=== PATIENT | male | born 1995 | race Caucasian/White ===

== ENCOUNTER 2017-06-04 10:26 | Emergency (ER) | payer OTHER ==
[~2017-06-04] VITALS: Ht 185.4 cm; Wt 72.7 kg
[2017-06-04 10:27] VITALS: BP 127/69
[2017-06-04] MEDS ORDERED: METH4TAB28 PO (10:36)
[2017-06-04] MEDS ORDERED: CETI10TA PO (10:36)
[2017-06-04] MEDS ORDERED: HYDR-3363 PO (10:36)
[2017-06-04] MEDS ORDERED: BENA25CA4 PO (10:37)
[2017-06-04] MEDS ORDERED: dexameTHASONE 20 MG/5 ML VIAL (J1100) IM ONE (11:00)
== END 2017-06-04 11:32 | disposition home or self-care (01) ==
LOC: M ED 10:26
DX: R21 Rash and other nonspecific skin eruption (principal); T78.40XA Allergy, unspecified, initial encounter; F17.210 Nicotine dependence, cigarettes, uncomplicated
CPT/HCPCS: 96372; 99282; J1100

== ENCOUNTER 2017-06-06 07:38 | Emergency (ER) | payer OTHER ==
[~2017-06-06] VITALS: Ht 180.3 cm; Wt 75.0 kg
[~2017-06-06 07:38] MED LIST: BENA25CA4 PO; CETI10TA PO; HYDR-3363 PO; METH4TAB28 PO
[2017-06-06 07:52] VITALS: BP 132/57
[2017-06-06] MEDS ORDERED: predniSONE 20 MG TAB PO ONE (08:30)
[2017-06-06] MEDS ORDERED: HYDROCORTISONE 1% CREAM 30 GM TOP ONE (08:30)
[2017-06-06] MEDS ORDERED: PRED20TA PO (08:30)
== END 2017-06-06 08:46 | disposition home or self-care (01) ==
LOC: M ED 07:38
DX: L50.9 Urticaria, unspecified (principal); T78.40XA Allergy, unspecified, initial encounter; Z79.899 Other long term (current) drug therapy

== ENCOUNTER 2017-08-08 17:28 | Emergency (ER) | payer OTHER ==
[~2017-08-08] VITALS: Ht 180.3 cm; Wt 72.7 kg
[~2017-08-08 17:28] MED LIST changes: +PRED20TA PO
[2017-08-08] MEDS ORDERED: PERCOCET 5MG/325MG TAB PO ONE (18:00)
[2017-08-08] MEDS ORDERED: ceFAZolin 1GM INJ (J0690) IM ONE (18:15)
[2017-08-08] MEDS ORDERED: KEFL500C17 PO (18:23)
[2017-08-08] MEDS ORDERED: PERC5TAB12 PO (18:23)
[2017-08-08 18:29] VITALS: BP 138/67
--- NOTE | 2017-08-08 18:29 | REP ---
Clinical: Trauma. Technique: AP and lateral views of the left hand. Findings: No acute fracture or dislocation is appreciated. Osseous structures and joint spaces are intact and normal. No subcutaneous emphysema or radiodense foreign body. Impression: No acute fracture or dislocation. Signed by Mike Song MD 08/08/2017 06:20 P
== END 2017-08-08 18:44 | disposition home or self-care (01) ==
LOC: M ED 17:28
DX: S62.301A Unspecified fracture of second metacarpal bone, left hand, initial encounter for closed fracture (principal); S61.301A Unspecified open wound of left index finger with damage to nail, initial encounter; S61.102A Unspecified open wound of left thumb with damage to nail, initial encounter; W23.0XXA Caught, crushed, jammed, or pinched between moving objects, initial encounter; Y92.018 Other place in single-family (private) house as the place of occurrence of the external cause; Y93.89 Activity, other specified; Y99.8 Other external cause status; F17.210 Nicotine dependence, cigarettes, uncomplicated
CPT/HCPCS: 73120; 96372; 99284; J0690

== ENCOUNTER 2019-10-10 17:41 | Emergency (ER) | payer OTHER ==
[~2019-10-10] VITALS: Ht 180.3 cm; Wt 71.8 kg
[~2019-10-10 17:41] MED LIST changes: +KEFL500C17 PO; -METH4TAB28 PO; +METH4TAB8 PO; +PERC5TAB12 PO
[2019-10-10] MEDS ORDERED: SUMAtriptan SUCCINATE 6 MG/0.5 ML VIAL SC ONE (19:00)
[2019-10-10] MEDS ORDERED: METOCLOPRAMIDE INJ 10MG/2ML VIAL (J2765) IV ONE (19:00)
[2019-10-10 19:20] LABS: BASO % 0.4 % (0.0-1.0); EOS % 0.5 % (0.0-3.0); HEMATOCRIT 43.5 % (42.0-52.0); HEMOGLOBIN 14.8 g/dl (13.5-17.5); LYMPH # 2.4 10^3/uL (1.5-5.0); LYMPH % 28.9 % (24.0-44.0); MEAN CORPUSCULAR HEMOGLOBIN 30.7 pg (27.0-33.0); MEAN CORPUSCULAR VOLUME 90.2 fl (80.0-96.0); MONO # 0.6 10^3/uL (0.0-0.8); MONO % 6.7 % (0.0-5.0); NEUTROPHILS # 5.4 10^3/uL (1.5-8.5); NEUTROPHILS % 63.3 % (36.0-66.0); PLATELET COUNT, AUTOMATED 189 10^3/uL (150-450); RED BLOOD COUNT 4.82 10^6/uL (4.30-6.10); WHITE BLOOD COUNT 8.5 10^3/uL (4.0-10.0)
[2019-10-10 19:37] LABS: ERYTHROCYTE SEDIMENTATION RATE 1 mm/hr (0-15)
--- NOTE | 2019-10-10 19:55 | REPVR ---
PROCEDURE INFORMATION: Exam: CT Head Without Contrast Exam date and time: 10/10/2019 6:57 PM Age: 24 years old Clinical indication: Speech disturbance; Additional info: Speech problems, numbness hands TECHNIQUE: Imaging protocol: Computed tomography of the head without contrast. Radiation optimization: All CT scans at this facility use at least one of these dose optimization techniques: automated exposure control; mA and/or kV adjustment per patient size (includes targeted exams where dose is matched to clinical indication); or iterative reconstruction. COMPARISON: No relevant prior studies available. FINDINGS: Brain: No acute infarction. No hemorrhage. Unremarkable white matter. No mass effect. Ventricles: Normal. No ventriculomegaly. Bones/joints: Unremarkable. No acute fracture. Sinuses: Visualized sinuses are unremarkable. No fluid levels. Mastoid air cells: Visualized mastoid air cells are well aerated. Soft tissues: Unremarkable. IMPRESSION: No acute intracranial abnormality. Electronically signed by: Tess Snow On 10/10/2019 19:55:24 PM
[2019-10-10 20:49] VITALS: BP 113/55
== END 2019-10-10 20:54 | disposition home or self-care (01) ==
LOC: M ED 17:41
DX: G43.119 Migraine with aura, intractable, without status migrainosus (principal)
CPT/HCPCS: 70450; 80047; 85025; 85652; 86140; 96374; 99284; J2765

== ENCOUNTER → 2021-03-22 | Outpatient (CLI) | payer OTHER ==
[~2021-03-22] MED LIST changes: +ISOVUE-300 61% 50ML VIAL As Ordered ONE; +LIDOCAINE 1% MDV 20ML VIAL As Ordered ONE; +TRIAMCINOLONE ACETONIDE SUSP 40 MG/ML VIAL (J3301) As Ordered ONE
--- NOTE | 2021-03-22 17:16 | REP ---
INDICATION: LIGAMENT SPRAIN OF RT HIP. COMPARISON: None. TECHNIQUE: The procedure was performed under the direct supervision of Dr. Hitchcock. The benefits and risks including but not limited to pain infection and bleeding and anaphylaxis were explained to the patient and informed consent was obtained. The right femoral neck was localized using fluoroscopic guidance. The skin was prepped and draped in a sterile fashion. 1% lidocaine was used as a local anesthetic. Using fluoroscopic guidance, and last image hold technology, a 22-gauge spinal needle was inserted and advanced to the femoral neck. 0.5 ml of Isovue-300 was injected to verify placement. Ten ml of a solution containing 9 ml of 1% Xylocaine and 1 mL of Kenalog 40 mg was injected. The needle was then removed. The patient tolerated the procedure well and there were no immediate complications. Less than 6 seconds of fluoro time was utilized for this procedure. FINDINGS: None IMPRESSION: Fluoro guidance for right hip injection. <Electronically signed by Sergo Mccall > 03/22/21 1652 <Electronically signed by Elieser Hitchcock > 03/22/21 [id number]
== END ==
LOC: M RADPRO 09:28
PROVIDERS: ATTEND Physician Assistant Surgical
DX: S73.12 Ischiocapsular (ligament) sprain of hip (principal); Y99.8 Other external cause status
CPT/HCPCS: 20610; 77002; J3301; Q9967

== ENCOUNTER 2021-07-31 12:03 | Emergency (ER) | payer OTHER ==
[~2021-07-31] VITALS: Ht 180.3 cm; Wt 79.0 kg
[~2021-07-31 12:03] MED LIST changes: -ISOVUE-300 61% 50ML VIAL As Ordered ONE; -LIDOCAINE 1% MDV 20ML VIAL As Ordered ONE; -TRIAMCINOLONE ACETONIDE SUSP 40 MG/ML VIAL (J3301) As Ordered ONE
--- OUTSIDE RECORDS SUMMARY | 2021-07-31 12:25 | CCD | Continuity of Care Document ---
Author Author David Ruiz M.D. Organization Unknown Address [address] [place] [address] Phone [phone] Care Team Providers Care Commercial Lines Account Manager Name Role Phone Referral, Self AUTM Unavailable Unknown AUTM Unavailable Problems Description No Information Available Social History Type Date Description Comments Sex Unknown Tobacco Use Start: Unknown Never Used Smokeless Tobacco ETOH Use Occasionally consumes alcohol Tobacco Use Start: Unknown End: Unknown Patient is a former smoker Smoking Status Reviewed: 05/07/21 Patient is a former smoker Exercise Type/Frequency Exercises regularly Regu lar endurance, cardio, strength, and weight training Allergies, Adverse Reactions, Alerts Description No Information Available Medications Description No Information Available Immunizations Description No Information Available Vital Signs Date Vital Result Comment 05/07/2021 11:23am Height 71 inches 5'11" Weight 175.00 lb BMI (Body Mass Index) 24.4 kg/m2 Heart Rate 61 /min Body Temperature 97.2 F Pain Level 7 rt hip O2 % BldC Oximetry 98 % Results Description No Information Available Procedures Description No Information Available Medical Devices Description No Information Available Encounters Description No Information Available Assessments Description No Information Available Plan of Treatment No Information Available Functional Status Description No Information Available Mental Status Description No Information Available Referrals Description No Information Available
--- OUTSIDE RECORDS SUMMARY | 2021-07-31 12:25 | CCD | Summary of Care ---
Author Author [facility] Organization [facility] Address Unknown Phone Unavailable Care Team Providers Care Tree Driller Name Role Phone Pcp, No PCP Unavailable Reason for Referral * Diagnostic Radiology (Routine) Referred By Contact Referred To Contact Status Reason Specialty Diagnoses / Procedures Yordan Fuentes MD [address] [facility] [address] [place] [id number] Email: [email or web address] Open Radiology Diagnoses Soft tissue mass P rocedures MR Extremity Lower Joint with and without Contrast Right Joint, Hip Electronically signed by Yordan Fuentes MD at Reason for Visit * Reason Comments New Patient Right hip mass * Office Visit (Routine) Referred By Contact Referred To Contact Status Reason Specialty Diagnoses / Procedures [facility] - REFERRAL [id number] [place] [address] Yordan Funetes MD [address] [place] [address] [place] [id number] Email: [email or web address] Open Orthopedic Diagnoses Surgery F2F, R hip painpt to bring MRI/films on disc, records scanned, ins, referred by [facility],, records scanned, call given to orthoconnect to complete prereg P rocedures NEW PATIENT 06/02/21-06/02/22 RT HIP Encounter Details Care Team Description Date Type Department Yordan Fuentes MD [address] [facility] [address] [place] [address] Soft tissue mass (Primary Dx) 06/21/2021 Office Visit [facility] [address] [phone] Allergies No Known Active Allergiesdocumented as of this encounter (statuses as of 06/21/2021) Medications No known medicationsdocumented as of this encounter (statuses as of 06/21/2021) Active Problems No known active problemsdocumented as of this encounter (statuses as of 06/21/2021) Immunizations Name Administration Dates Next Due documented as of this encounter Social History Date Tobacco Use Types Packs/Day Years Used Never Smoker Smokeless Tobacco: Never Used Comments Alcohol Use Standard Drinks/Week Not Currently 0 (1 standard drink = 0.6 o z pure alcohol) Sex Assigned at Date Recorded Not on file Date Recorded COVID-19 Exposure Response 06/21/2021 8:13 AM EDT In the last month, have you been in contact with No / Unsure someone who was confirmed or suspected to have Coronavirus / COVID-19? documented as of this encounter Last Filed Vital Signs Reading Time Taken Comments Vital Sign - - Blood Pressure - - Pulse - - Temperature - - Respiratory Rate - - Oxygen Saturation - - Inhaled Oxygen Concentration 77.1 kg (170 lb) 06/21/2021 8:40 AM EDT Weight 180.3 cm (5' 11") 06/21/2021 8:40 AM EDT Height 23.71 06/21/2021 8:40 AM EDT Body Mass Index documented in this encounter Patient Instructions * Patient Instructions* Sofya Guadarrama LPN - 06/21/2021 8:15 AM EDT The patient is instructed to call the office with any question/concerns or if sy mptoms worsen. documented in this encounter Progress Notes * Khoa Law MD - 06/21/2021 8:15 AM EDT Images from the original note were not included. ADDENDUM: Patient also seen by resident physician and examined under my supervis ion. Cornell portions of the history and examination were repeated by me, and the e ntire resident note was reviewed. Modifications to that evaluation are detailed here. Changes to the note are made within the substance of the original reside nt note. NEW PATIENT, INITIAL ENCOUNTER, SOFT TISSUE MASS Episode of Care: Initial Symptoms: Chronic Anatomical Site: Hip Laterality: Right Injury Cause and Place of Occurrence: N/A Fracture Healing Status: N/A CC: Soft-tissue mass HPI: David is a 26 y.o. year/old White or male with a 5 year history of right hip pain. Recent MRI on 01/11/2021 showed a cystic lesion adjacent to the iliopsoas. There have been no constitutional symptoms. 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 History of prior known soft-tissue masses/cancer was absent. Work-up thus far has consisted of x-rays and MRI of the involved site. Aspiration has not been done. Biopsy has not been done. Staging work-up thus far has consisted of no other studies. PMHx: Reviewed on current visit information sheet. History reviewed. No pertinent past medical history. History reviewed. No pertinent surgical history. No current outpatient medications on file. No Known Allergies PSoHx: Social History Tobacco Use Smoking status: Never Smoker Smokeless tobacco: Never Used Substance Use Topics Alcohol use: Not Currently Drug use: Not Currently FHx: Cancer-related family history is not on file. Family History Problem Relation Age of Onset Heart disease Paternal Grandfather ROS: Comprehensive review of systems completed by patient and reviewed by me. P ertinent positive findings included in the HPI. Otherwise negative. PHYSICAL EXAM: Healthy-appearing, well-developed, well-nourished, alert and orie nted x 3. Mood showing no evidence of agitation, anxiety, or depression. HEENT: Normocephalic and atraumatic to inspection and palpation. Sclerae anicter ic. Extraocular muscles intact. No conjunctivitis. Pupils equal, round, and reac tive to light and accommodation. Oropharynx clear with no lesions. Mucous membra igor pink and moist. Hearing within normal limits. Intact to finger rub. NECK: No palpable thyromegaly, adenopathy, or masses. HEART: Regular rate and rhythm without murmurs. LUNGS: Clear to auscultation. No rales, rhonchi, or wheezes. Respiratory effort normal. ABDOMEN: No hepatosplenomegaly or soft tissue masses. Soft and nontender . LYMPH: No cervical, epitrochlear, axillary, inguinal, or popliteal adenopathy. SKIN: No rashes or jaundice to inspection. No nodules to palpation. PERIPHERAL VASCULAR EXAM: No cyanosis, clubbing, or edema in the distal extremit ies. Pulses are palpable distally. NEURO: Neurovascular status distally on the involved side shows intact foot dors iflexion/plantarflexion/EHL, normal light touch sensation in the deep and superf icial peroneal nerve distribution as well as the medial and lateral plantar nerv e distributions; foot is well perfused. Symmetric with contralateral. MUSCULOSKELETAL: Bilateral hip exam shows no tenderness over the greater trochan ter. He has ain with FADIR and abduction. Stinchfield does not produce any groin pain on either side. There is a non-tender palpable mass in the right groin. Overlying skin is without acute related abnormalities. RADIOLOGY: All imaging studies were reviewed with the patient/family members. Th ere is a lobulated soft tissue mass in the anterior groin that is hypointense to muscle on T1 and hyperintense on T2. XR 01/06/21 report: MRI 02/09/2021 Report: ASSESSMENT: 1. Soft-tissue mass right hip. DDx: Synovial cyst, other benign synovial process , much less likely synovial sarcoma 2. Bilateral hip pain, right worse than left. This may be related to femoral a cetabular impingement as he does have a cam lesion. However, he only obtained m inimal relief with an hip injection. PLAN: PROBABLE SYNOVIAL CYST- Options of observation vs office or image-guided needle aspiration to confirm the diagnosis vs excision of the lesion were discussed wit h the patient. Risks and chances of recurrence and/or spontaneous resoloution w ith each were also reviewed. The patient understands that there is no guarantee of success even with open operative excision. The patient opts for MRI with and without Azeem. FU to review results. CC: No Pcp Encounter Diagnosis Name Primary? Soft tissue mass Yes Orders Placed This Encounter MR Extremity Lower Joint with and without Contrast Right Joint, Hip Summary of the information reviewed: 1. History, 2. Physical exam, 3. X-rays,M RI 4. Prior notes documented in this encounter Plan of Treatment Order Schedule Name Type Priority Associated Diag noses Expected: 06/21/2021, Expires: 2 MR Extremity Lower Joint Imaging Routine Soft tissue mass with and without Contrast Right Joint, Hip Health Maintenance Due Date Last Done Comments MMR Vaccines (1 of 1 - 1997 Standard series) Varicella Vaccines (1 of 1997 2 - 2-dose childhood series) DTaP,Tdap,and Td Vaccines 2003 (1 - Tdap) COVID-19 Vaccine (1) 2008 02/16/2021 HIV Screening 2009 Influenza Vaccine 06/25/2021 Pneumococcal Vaccine: 65+ 2061 Years (1 of 1 - PPSV23) HIB Vaccines Aged Out No longer eligible based on patient's age to complete this topic Hepatitis A Vaccines Aged Out No longer eligibl e based on patient's age to complete this topic Hepatitis B Vaccines Aged Out No longer eligibl e based on patient's age to complete this topic IPV Vaccines Aged Out No longer eligible based on patient's age to complete this topic Pneumococcal Vaccine: Aged Out No longer eligib le based on patient's age to Pediatrics (0 to 5 Years) complete this topic and At-Risk Patients (6 to 64 Years) documented as of this encounter Results Not on filedocumented in this encounter Visit Diagnoses Diagnosis Soft tissue mass - Primary Disorders of soft tissue, unspecified documented in this encounter
--- OUTSIDE RECORDS SUMMARY | 2021-07-31 12:25 | CCD | Continuity of Care Document ---
Author Author David Ruiz M.D. Organization Unknown Address [address] [place] [address] Phone [phone] Care Team Providers Care Millwright Instructor Name Role Phone Referral, Self AUTM Unavailable [...]
--- OUTSIDE RECORDS SUMMARY | 2021-07-31 12:25 | CCD | Continuity of Care Document ---
Author Author David Ruiz M.D. Organization Unknown Address [address] [place] [address] Phone [phone] Care Team Providers Care Racing Secretary Name Role Phone Referral, Self AUTM Unavailable Unknown AUTM Unavailable [facility] AUTM [phone] Problems Active Problems Provider Date Synovial cyst of hip Geovanny Ruiz M.D. Onset: 2020 Sprain of hip Geovanny Ruiz M.D. 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 Onset: 05/07/2021 Social History Type Date Description Comments Sex Unknown Tobacco Use Start: Unknown Never Used Smokeless Tobacco ETOH Use Occasionally consumes alcohol Tobacco Use Start: Unknown End: Unknown Patient is a former smoker Recreational Drug Use Denies Drug Use Smoking Status Reviewed: 07/23/21 Patient is a former smoker Exercise Type/Frequency Exercises regularly Regu lar endurance, cardio, strength, and weight training Allergies and adverse reactions Description No Known Drug Allergies Medications Description No Active Medications Immunizations Description No Information Available Vital Signs Date Vital Result Comment 07/23/2021 10:11am Height 71 inches 5'11" Weight 175.00 lb BMI (Body Mass Index) 24.4 kg/m2 Heart Rate 66 /min Body Temperature 98.0 F Pain Level 3 O2 % BldC Oximetry 94 % 05/07/2021 11:23am Height 71 inches 5'11" Weight 175.00 lb BMI (Body Mass Index) 24.4 kg/m2 Heart Rate 61 /min Body Temperature 97.2 F Pain Level 7 rt hip O2 % BldC Oximetry 98 % Results Description No Information Available Procedures Date Code Description Status 05/07/2021 [address] Office/Outpatient [facility] 30 -44 Minutes Completed Medical Devices Description No Information Available Encounters Type Date Location Provider Dx Diagnosis Office Visit 05/07/2021 10:50a [place] [facility] Geovanny Ruiz M.D. M24.151 Other articular cartilage disorders, rig ht hip S73.191A Other sprain of right hip, i nitial encounter M71.351 Other bursal cyst, right hip Assessments Date Code Description Provider 05/07/2021 M24.151 Other articular cartilage disord ers, right hip Mari Najera PA-C 05/07/2021 M24.151 Other articular cartilage disord ers, right hip Geovanny Ruiz M.D. 05/07/2021 S73.191A Other sprain of right hip, initi al encounter Mari Najera PA-C 05/07/2021 S73.191A Other sprain of right hip, initi al encounter Geovanny Ruiz M.D. 05/07/2021 M71.351 Other bursal cyst, right hip Milind Najera PA-C 05/07/2021 M71.351 Other bursal cyst, right hip Hernesto Ruiz M.D. Plan of Treatment Future Appointment(s):* 08/03/2021 11:00 am - Geovanny Ruiz M.D. at [facility] Functional Status Description No Information Available Mental Status Description No Information Available Referrals Refer to Reason for Referral Status Appt Date Yordan Fuentes 05/13/21 FAXED ALL REF INFO Closed [address] [place] [address] [phone]
--- OUTSIDE RECORDS SUMMARY | 2021-07-31 12:25 | CCD | Continuity of Care Document ---
Author Author David Ruiz M.D. Organization Unknown Address [address] [place] [address] Phone [phone] Care Team Providers Care Facility Maintenance Manager Name Role Phone Referral, Self AUTM Unavailable Unknown AUTM Unavailable [facility] AUTM [phone] Problems Active Problems Provider Date Synovial cyst [...] Available Procedures Date Code Description Status 05/07/2021 [address] Office[facility]patient [facility] 30 -44 Minutes Completed Medical Devices Description No Information Available Encounters Type Date Location Provider Dx Diagnosis Office Visit 05/07/2021 10:50a [place] [facility] Geovanny Ruiz M.D. M24.151 Other articular [...] 11:00 am - Geovanny Ru[facility] M.D. at [facility] Functional Status Description No Information Available Mental Status Description No Information Available Referrals Refer to Reason for Referral Status Appt Date Yordan Fuentes 05/13/21 FAXED ALL REF INFO Closed [address] [place] [address] [phone]
--- OUTSIDE RECORDS SUMMARY | 2021-07-31 12:26 | CCD ---
Author Author [facility] Organization [facility] Address Unknown Phone Unavailable Care Team Providers Care Aircraft Ordnance Technician Name Role Phone Herman Ruiz MD Unavailable Unavailable Herman Ruiz MD Unavailable Unavailable Herman Ruiz MD Unavailable Unavailable JosephHerman MD Unavailable Unavailable JosephHerman MD Unavailable Unavailable JosephHerman MD Unavailable Unavailable JosephHerman MD Unavailable Unavailable JosephHerman MD Unavailable Unavailable JosephHerman MD Unavailable Unavailable JosephHerman MD Unavailable Unavailable JosephHerman MD Unavailable Unavailable JosephHerman MD Unavailable Unavailable JosephHerman MD Unavailable Unavailable JosephHerman MD Unavailable Unavailable JosephHerman MD Unavailable Unavailable JosephHerman douglas MD Unavailable Unavailable JosephHerman douglas MD Unavailable Unavailable JosephHerman douglas MD Unavailable Unavailable JosephHerman douglas MD Unavailable Unavailable JosephHerman MD Unavailable Unavailable Herman Ruiz MD Unavailable Unavailable JosephHerman douglas MD Unavailable Unavailable Herman Ruiz MD Unavailable Unavailable Herman Ruiz MD Unavailable Unavailable Herman Ruiz MD Unavailable Unavailable Herman Ruiz MD Unavailable Unavailable JosephHerman douglas MD Unavailable Unavailable JosephHerman MD Unavailable Unavailable JosephHerman douglas MD Unavailable Unavailable Herman Ruiz MD Unavailable Unavailable Herman Ruiz MD Unavailable Unavailable Herman Ruiz MD Unavailable Unavailable Herman Ruiz MD Unavailable Unavailable Herman Ruiz MD Unavailable Unavailable JosephHerman douglas MD Unavailable Unavailable Herman Ruiz MD Unavailable Unavailable Joseph, Herman Small MD Unavailable Unavailable Joseph, Herman Small MD Unavailable Unavailable Joseph, Herman Small MD Unavailable Unavailable Joseph, Herman Small MD Unavailable Unavailable Joseph, Herman Small MD Unavailable Unavailable Joseph, Herman Small MD Unavailable Unavailable Joseph, Herman Small MD Unavailable Unavailable Joseph, Herman Small MD Unavailable Unavailable Joseph, Herman Small MD Unavailable Unavailable Joseph, Herman Small MD Unavailable Unavailable Joseph, Herman Small MD Unavailable Unavailable Joseph, Herman Small MD Unavailable Unavailable Joseph, Herman Small MD Unavailable Unavailable Joseph, Herman Small MD Unavailable Unavailable Joseph, Herman Small MD Unavailable Unavailable Joseph, Herman Small MD Unavailable Unavailable Joseph, Herman Small MD Unavailable Unavailable Joseph, Herman Small MD Unavailable Unavailable Joseph, Herman Small MD Unavailable Unavailable Joseph, Herman Small MD Unavailable Unavailable Joseph, Herman Small MD Unavailable Unavailable Joseph, Herman Small MD Unavailable Unavailable Joseph, Herman Small MD Unavailable Unavailable Joseph, Herman Small MD Unavailable Unavailable Joseph, Herman Small MD Unavailable Unavailable Joseph, Herman Small MD Unavailable Unavailable Joseph, Herman Small MD Unavailable Unavailable Joseph, Herman Small MD Unavailable Unavailable Joseph, Herman Small MD Unavailable Unavailable Joseph, Herman Small MD Unavailable Unavailable Joseph, Herman Small MD Unavailable Unavailable Gina, Sonal Farr MD Unavailable Unavailable Gina, Sonal Farr MD Unavailable Unavailable Gina, Sonal Farr MD Unavailable Unavailable Gina, Sonal Farr MD Unavailable Unavailable Gina, Sonal Farr MD Unavailable Unavailable Gina, Sonal Farr MD Unavailable Unavailable Gina, Sonal Farr MD Unavailable Unavailable Gina, Sonal Farr MD Unavailable Unavailable Gina, Sonal Yordan MD Unavailable Unavailable Gina, Sonal Yordan MD Unavailable Unavailable Gina, Sonal Yordan MD Unavailable Unavailable Gina, Sonal Yordan MD Unavailable Unavailable Gina, Sonal Yordan MD Unavailable Unavailable Gina, Sonal Yordan MD Unavailable Unavailable Gina, Sonal Yordan MD Unavailable Unavailable Gina, Sonal Yordan MD Unavailable Unavailable Gina, Sonal Yordan MD Unavailable Unavailable Gina, Sonal Yordan MD Unavailable Unavailable Gina, Sonal Yordan MD Unavailable Unavailable Gina, Sonal Yordan MD Unavailable Unavailable Gina, Sonal Yordan MD Unavailable Unavailable Gina, Sonal Yordan MD Unavailable Unavailable Gina, Sonal Yordan MD Unavailable Unavailable Gina, Sonal Yordan Unavailable Unavailable Gina, A Yordan MD Unavailable Unavailable Gina, A Yordan MD Unavailable Unavailable Gina, A Yordan MD Unavailable Unavailable Gina, A Yordan MD Unavailable Unavailable Gina, A Yordan MD Unavailable Unavailable Gina, A Yordan MD Unavailable Unavailable Gina, A Yordan MD Unavailable Unavailable Gina, A Yordan MD Unavailable Unavailable Gina, A Yordan MD Unavailable Unavailable Gina, A Yordan MD Unavailable Unavailable Gina, A Yordan MD Unavailable Unavailable Gina, A Yordan MD Unavailable Unavailable Gina, A Yordan MD Unavailable Unavailable Gina, A Yordan MD Unavailable Unavailable Gina, A Yordan MD Unavailable Unavailable Gina, A Yordan MD Unavailable Unavailable Gina, A Yordan MD Unavailable Unavailable Gina, A Yordan MD Unavailable Unavailable Gina, A Yordan MD Unavailable Unavailable Gina, A Yordan MD Unavailable Unavailable Gina, A Yordan MD Unavailable Unavailable Gina, A Yordan MD Unavailable Unavailable Gina, A Yordan MD Unavailable Unavailable Gina, A Oyrdan MD Unavailable Unavailable Gina, A Yordan MD Unavailable Unavailable Gina, A Yordan MD Unavailable Unavailable Gina, A Yordan MD Unavailable Unavailable Gina, A Yordan MD Unavailable Unavailable Gina, A Yordan MD Unavailable Unavailable Gina, A Yordan MD Unavailable Unavailable Gina, A Yordan MD Unavailable Unavailable Gina, A Yordan MD Unavailable Unavailable Gina, A Yordan MD Unavailable Unavailable Gina, A Yordan MD Unavailable Unavailable Gina, A Yordan MD Unavailable Unavailable Gina, A Yordan MD Unavailable Unavailable Gina, A Yordan MD Unavailable Unavailable Gina, A Yordan MD Unavailable Unavailable Gina, A Yordan MD Unavailable Unavailable Gina, A Yordan MD Unavailable Unavailable Gina, A Yordan MD Unavailable Unavailable Gina, A Yordan MD Unavailable Unavailable Gina, A Yordan MD Unavailable Unavailable Gina, A Yordan MD Unavailable Unavailable Gina, A Yordan MD Unavailable Unavailable Gina, A Yordan MD Unavailable Unavailable Gina, A Yordan MD Unavailable Unavailable Gina, A Yordan MD Unavailable Unavailable Gina, A Yordan MD Unavailable Unavailable Gina, A Yordan MD Unavailable Unavailable Gina, A Yordan MD Unavailable Unavailable Gina, A Yordan MD Unavailable Unavailable Gina, A Yordan MD Unavailable Unavailable Gina, A Yordan MD Unavailable Unavailable Gina, A Yordan MD Unavailable Unavailable Gina, A Yordan MD Unavailable Unavailable Gina, A Yordan MD Unavailable Unavailable Gina, A Yordan MD Unavailable Unavailable Gina, A Yordan MD Unavailable Unavailable Gina, A Yordan MD Unavailable Unavailable Gina, A Yordan MD Unavailable Unavailable Gina, A Yordan MD Unavailable Unavailable Gina, A Yordan MD Unavailable Unavailable Gina, A Yordan MD Unavailable Unavailable Gina, A Yordan MD Unavailable Unavailable Gina, A Yordan MD Unavailable Unavailable Gina, A Yordan MD Unavailable Unavailable Gina, A Yordan MD Unavailable Unavailable Gina, A Yordan MD Unavailable Unavailable Gina, A Yordan MD Unavailable Unavailable Gina, A Yordan MD Unavailable Unavailable Gina, A Yordan MD Unavailable Unavailable Gina, A Yordan MD Unavailable Unavailable Gina, A Yordan MD Unavailable Unavailable Gina, A Yordan MD Unavailable Unavailable Gina, A Yordan MD Unavailable Unavailable Gina, A Yordan MD Unavailable Unavailable Gina, A Yordan MD Unavailable Unavailable Gina, A Yordan MD Unavailable Unavailable Gina, A Yordan MD Unavailable Unavailable Gina, A Yordan MD Unavailable Unavailable Gina, A Yordan MD Unavailable Unavailable Gina, A Yordan MD Unavailable Unavailable Gina, A Yordan MD Unavailable Unavailable Gina, A Yordan MD Unavailable Unavailable Gina, A Yordan MD Unavailable Unavailable Gina, A Yordan MD Unavailable Unavailable Gina, A Yordan MD Unavailable Unavailable Gina, A Yordan MD Unavailable Unavailable Gina, A Yordan MD Unavailable Unavailable Gina, A Yordan MD Unavailable Unavailable Gina, A Yordan MD Unavailable Unavailable Gina, A Yordan MD Unavailable Unavailable Re-disclosure Warning The records that you are about to access may contain information from federally-assisted alcohol or drug abuse programs. If such information is present, then the following federally mandated warning applies: This information has been disclosed to you from records protected by federal confidentiality rules (42 CFR part 2). The federal rules prohibit you from making any further disclosure of this information unless further disclosure is expressly permitted by the written consent of the person to whom it pertains or as otherwise permitted by 42 CFR part 2. A general authorization for the release of medical or other information is NOT sufficient for this purpose. The Federal rules restrict any use of the information to criminally investigate or prosecute any alcohol or drug abuse patient.The records that you are about to access may contain highly sensitive health information, the redisclosure of which is protected by Article 27-F of the [facility] Public Health law. If you continue you may have access to information: Regarding HIV / AIDS; Provided by facilities licensed or operated by the [facility] Office of Mental Health; or Provided by the [facility] Office for People With Developmental Disabilities. If such information is present, then the following [facility] mandated warning applies: This information has been disclosed to you from confidential records which are protected by state law. State law prohibits you from making any further disclosure of this information without the specific written consent of the person to whom it pertains, or as otherwise permitted by law. Any unauthorized further disclosure in violation of state law may result in a fine or detention sentence or both. A general authorization for the release of medical or other information is NOT sufficient authorization for further disc losure. Allergies and Adverse Reactions Type Description Substance Reaction Status Data Source(s ) Propensity to adverse reactions NO KNOWN ALLERGIES NO KNOWN ALLERGIES [facility] Encounters Encounter Providers Location Date Indications Data Source(s ) Outpatient Attender: Yordan Fuentes MD [id number] 07/16/2021 12:00:0 0 AM EDT [facility] Outpatient Referrer: Yordan Fuentes MD 07/16/2021 12 :00:00 AM EDT Other specified soft tissue disorders [facility] Other specified soft tissue disorders Outpatient Attender: Yordan Fuentes MDReferrer: Geovanny douglas MD [id number] 06/21/2021 12:00:00 AM T [facility] Outpatient Attender: Geovanny Ruiz MD [facility] 10:50:00 AM EDT [facility] ([facility] ) Immunizations Vaccine Date Status Description Data Source(s) COVID-19 VACCINE Janet 02/16/2021 12:00:00 AM EDT completed [facility] Vaccine Series Complete: YESThis Data wa s Submitted to [facility] Via Electronic Payment and Services (EPS)[employer]. Medications No Information Insurance Providers Payer name Policy type / Coverage type Policy ID Covered alliance party ID Covered alliance party's relationship to mckeon Policy Mckeon Plan Information U [id number] Self [id number] [employer] [id number] SP [id number] [employer] [id number] SP [id number] [employer] O [id number] S [id number] ACTIVE DUTY [id number] SP [id number] Problems, Conditions, and Diagnoses Code Display Name Description Problem Type Effective Dates Data Source(s) M79.89 Other specified soft tissue disorders Ot her specified soft tissue disorders Diagnosis 07/16/2021 10:42:55 AM EDT [facility] 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 Problem 04/25 12:00:00 AM EDT [facility] ([facility]) S73.191A Sprain of hip Sprain of hip Problem 05/07/2021 12:00:00 AM EDT [facility] 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 Problem 05/07/2021 12:00:00 AM EDT [facility] ([facility]) Surgeries/Procedures Procedure Description Date Indications Data Source(s) OFFICE OUTPATIENT NEW 30 MINUTES 05/07/2021 12:00:00 A M EDT [facility] ([facility]) Results ID Date Data Source [id number] 07/16/2021 03:49:48 PM EDT [facility] Name Value Range Interpretation Code Description Data Gracy rce(s) Supporting Document(s) Progress Note [facility] [id number] lbm [file] [id number] ID Date Data Source [id number] 07/16/2021 02:30:02 PM EDT [facility] MR EXTREMITY LOWER JOINT WITH AND WITHOU T CONTRAST [id number] RESULTInterpreted by:Aneudy Mcarthur MDEXAM: MRI Pelvis without and with ContrastHISTORY: Soft tissue massCOMPARISON: Outside MRI right hip 02/09/2021TECHNIQUE: Multisequence multiplanar MR imaging of the pelvis and hips was performed performed prior to and following intravenous administration of gadolinium contrast. Exam was performed on a 3.0 Grace GE MRI unit.CONTRAST: 16 cc MultiHance intravenous FINDINGS: No significant marrow signal abnormality, fracture or pelvic stress fracture. No aggressive marrow lesion or aggressive marrow enhancement.Osseous convexities are seen at the anterior femoral head-neck junctions bilaterally, which may place patient at risk for CAM type femoral acetabular impingement. Nondisplaced right anterior-superior acetabular labral tear is better visualized on the previous exam, with tiny adjacent hyperintense T2 signal subcortical cyst and mild underlying subchondral marrow edema within the anterior-superior right acetabular rim. No articular cartilage defect. No right hip joint effusion.No significant left hip arthropathy or left hip joint effusion.Visualized tendon origins and insertions are intact. No tendon tear. There is a hypointense T1 and hyperintense T2 signal multiseptated tubular cystic lesion which extends from the anterior superior right acetabulum proximally along the medial surface of the right iliopsoas muscle body into the pelvis, extending 6.4 cm craniocaudally and a 2.1 cm AP and 0.6 cm transversely. This lesion demonstrates thin peripheral enhancement on postgadolinium series and is most compatible with a multiseptated anterior-superior right hip para labral cyst extending centrally. No solid or nodular mass enhancement and no aggressive MRI features.No muscle signal and muscle atrophy.IMPRESSION: 1. Peripherally enhancing 6.4 x 0.6 x 2.1 cm multiseptated para labral cyst extending from the anterior superior right acetabulum proximally along the medial surface of the right iliopsoas muscle body into the pelvis. No solid or nodular enhancement.2. 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, and may place patient at risk for CAM femoral acetabular impingement.This document has been electronically signed by Aneudy Mcarthur MD on 07/16/2021 2:27 PM Name Value Range Interpretation Code Description Data Gracy rce(s) Supporting Document(s) ID Date Data Source [id number] 06/21/2021 09:16:01 AM [facility] Name Value Range Interpretation Code Description Data [facility](s) Supporting Document(s) Progress Note [facility] [id number]/NNTwjSSNlb6IsEDulGIo3SBpdLZQmF8JdAMT7iJ8eFWF0LZoFCgDiDoTuQWR6 [facility] [file] pAOhd+Mary Carmen/c7wOOCKC+UVV5U/6E/37z+3EurtQUe3/j/YsWgj6aL/7+[id number]/bzo [file] ICAgICAgICAgICAgICAgICAgICAgICAgICAgICAgIC AgICAgICAgICAgICAgICAgICAgICAgICAgICANCiAgICAgICAgICAgICAgICAgICAgICAgICAgICAgIC AgICAgICAgICAgICAgICAgICAgICAgICAgICAgICAgICAgICAgICAgICAgICAgICAgICAgICAgICAgIC AgICAgICAgICANCiAgICAgICAgICAgICAgICAgICAg ICAgICAgICAgICAgICAgICAgICAgICAgICAgICAgICAgICAgICAgICAgICAgICAgICAgICAgICAgICAg ICAgICAgICAgICAgICAgICAgICANCiAgICAgICAgICAgICAgICAgICAgICAgICAgICAgICAgICAgICAg ICAgICAgICAgICAgICAgICAgICAgICAgICAgICAgIC AgICAgICAgICAgICAgICAgICAgICAgICAgICAgICANCiAgICAgICAgICAgICAgICAgICAgICAgICAgIC AgICAgICAgICAgICAgICAgICAgICAgICAgICAgICAgICAgICAgICAgICAgICAgICAgICAgICAgICAgIC AgICAgICAgICAgICANCiAgICAgICAgICAgICAgICAg ICAgICAgICAgICAgICAgICAgICAgICAgICAgICAgICAgICAgICAgICAgICAgICAgICAgICAgICAgICAg ICAgICAgICAgICAgICAgICAgICAgICANCiAgICAgICAgICAgICAgICAgICAgICAgICAgICAgICAgICAg ICAgICAgICAgICAgICAgICAgICAgICAgICAgICAgIC AgICAgICAgICAgICAgICAgICAgICAgICAgICAgICAgICANCiAgICAgICAgICAgICAgICAgICAgICAgIC AgICAgICAgICAgICAgICAgICAgICAgICAgICAgICAgICAgICAgICAgICAgICAgICAgICAgICAgICAgIC AgICAgICAgICAgICAgICANCiAgICAgICAgICAgICAg ICAgICAgICAgICAgICAgICAgICAgICAgICAgICAgICAgICAgICAgICAgICAgICAgICAgICAgICAgICAg ICAgICAgICAgICAgICAgICAgICAgICAgICANCiAgICAgICAgICAgICAgICAgICAgICAgICAgICAgICAg ICAgICAgICAgICAgICAgICAgICAgICAgICAgICAgIC AgICAgICAgICAgICAgICAgICAgICAgICAgICAgICAgICAgICANCjw/qTUbY0bveZDrliR2Z0baLe6LZb 6HBA7sf2YcDUJyNZveaaRmYjsYGlOuRZDhQpzRPit3UMcjVD0ShHGpH9RhK2RkYAodTZ6XEDZgWBTwqJ BhRWWeMFToQpM6POPbNTdgZT3YyZWfPGxtYJRuKTIu KwYpRLDcCYNkLCYlRW6EMQQkS247prJdAk7CJp4DItAuBQ9mik0WQzDvPTMeSfsUUdz9JDgeDO8QdCHr kRVeAGEcWBQZAaNpO5xtf0BgOjFvUMBLTUhtMU6Dw4BqnXFpMVx+Cb0MBT2kd5AsEMkyJRQoIR4gvx1M VPxAWzMoO3TbiOtvGNGab2szWGUbDW1grNWnVJA4RZ YbkjtmyA4cvMDyVTgvJq8hlmQuvldrPIWwYIPwIR6cUq2oNKUkEQZ5TnY7IDAZDX5ETLRfDNRhcNUeDZ NaDEOUZX3ZJSrmHRV8RIMzpaLijJQxRLubIG0SJSEixlPkZvXqBUVCXVv+Me6JII5sk8ZqZVdkOUTpAG 7jhj1LGPePAgSrQ6Q2tCHzF5P1RNeaTc3KKACeTFTo TqMjIHRVFLypYZ4QZS0kbdX9KL3DaMRsRDYfTDRufZUlRXt0E23pqSZaSEgzTQ1FJZX+Eduardo+Mf7KCYYu XGTnKDQiZuGzXSKJYaLvR1MqF1AXp8RtB8MyDO02vKsxqnDvJWyzML9QZW2rGOUzHIZZKR6ErBGqiF2b xgYbElXfDAZTKsTmJ16yjYZfSOZaNJReXBJlPa6WVQ BeM9NvgbChoBnlxhQnZTYdRVNGET2NPBthbeHynNWwwBxhXZ87gXtiWL0UUg4UOnBmSQ5ive4OoNBtZr 8UCSWtYd4IGOMvMSYqVOHqCQY1EWWzPdRfSVqoKOXzZEXqDVH8BAOvFMHiKF7WXfVgTODlKkV1HeJjIX UjGOPtrc8MNLEbOAGmNxW4WVAkNTSsRJZgIAebAKJz JOPyWKK2PCHyNZFiFA8XTmEfMQBmHUX6ISPjMOKqYPHgeh2GYFDzQJAxOvSoSiJdYZRpPRTlFZjvMNUj ZAB4RTO3AILlNPJiDZ4VZgSaIQYrCRm0ViFhQLKdRCCamn3QRHRqPQNpZTM2MjOaCKOcBJYwBNqrVHXd QIF7TSMrNQXfDCHhGP2JKaWhEIFzQHK1CaXoDIEcSJ Memz8WGGTaXWIxINK9RqPnKXXdHXSqRVwiBVVfSUVsIAXvJOWwGPGhRE8TIoHeVHKkQWK3BMafRMLaPT Rkzu1AXSCjDFWkWnMdASGmMGKnDVJjELtfSXVtLAAdXCu6RWXmGOUnAK7MLhPlXESbJrO0KBvhJUVxAP Zava0EUSHsMCGyYeg9SHEyHEUrXPZeJYyrIVYpAUR7 EKHeDFIkARWnBD5ZFwOvTCMvSzR4SJCwRSBaQYDscf5DGTQiRGOdJBJ7YTDvJVUtYAGrTYolVOPoNUN9 DBWhRLHeEKPfRA6EWuEvNYHyYbW6RSYwYUUpMFTowu3MSPGzOEEqLfD0RIFxVCBoGKGeDNndOKFdWTR9 NeB2MFYhIKCeXS3PXuMgBZfqAGOGJjk3FBzxB8l6GG JqKl2EQ1Czb5SeBdMjLCSQQFlnHM9exsMwTYRnKa3GT7zIEcozIWB0ZGKgFMKoN7HyJHAaRvR6JDCjEd NbUtc0RZL7FR2jATVdXMqwCyXcMKN1G5NqHdIkGDR8LvIsLnMaHRZ7ItQ4WrBdUO9SXw1GCmF7EKW2cJ TkXg6LNcN3ShVGIpIpNU9EKFk= ID Date Data Source [id number] 12/19/2020 10:00:00 AM EDT [facility] Name Value Range Interpretation Code Description Data Gracy rce(s) Supporting Document(s) SARS-CoV-2 POSITIVE [facility] This lab was ordered by [facility] and reported by [email or web address]. ID Date Data Source [id number] 12/19/2020 12:00:00 AM EDT [facility] Name Value Range Interpretation Code Description Data Rgacy rce(s) Supporting Document(s) SARS-CoV-2 RT-PCR positive [facility] This lab was ordered by [facility] and re ported by [facility] ID Date Data Source [id number] 12/14/2020 09:06:00 AM EDT [facility] Name Value Range Interpretation Code Description Data Gracy rce(s) Supporting Document(s) SARS coronavirus 2 RNA Not Detected [facility] This lab was ordered by [facility] [employer] [facility] and reported by [facility]. ID Date Data Source [id number] 10/15/2020 09:17:00 AM EST [facility] Name Value Range Interpretation Code Description Data Gracy rce(s) Supporting Document(s) SARS coronavirus 2 RNA Not Detected [facility] This lab was ordered by [facility] [employer] [facility] and reported by [facility]. Procedure Social History Code Duration Value Status Description Data Source(s ) Smoking 07/23/2021 12:00:00 AM EDT Patient is a former smoker completed Patient is a former smoker [facility] ([facility]) Alcohol intake 06/21/2021 12:00:00 AM EDT Ex-drinker (finding) comp leted Ex- drinker (finding) [facility] Tobacco use and exposure 06/21/2021 12:00:00 AM EDT Never used co mpleted Never used [facility] Smoking 06/21/2021 12:00:00 AM EDT Never smoker completed Never s [facility] Vital Signs ID Date Data Source UNK Name Value Range Interpretation Code Description Data Source(s) Body height 71 [in_i] 71 [in_i] [facility] ([facility]) 5'11" Body weight 175.00 [lb_av] 175.00 [lb_av] [facility] T ([facility]) Body mass index (BMI) [Ratio] 24.4 kg/m2 24.4 k g/m2 [facility] ([facility]) Heart rate 66 /min 66 /min [facility] ([facility]) Body temperature 98.0 [degF] 98.0 [degF] [facility] ([facility]) Oxygen saturation in Arterial blood by Pulse oximetry 94 % 94 % [facility] ([facility]) Body height 71 [in_i] 71 [in_i] [facility] ([facility]) 5'11" Body weight 175.00 [lb_av] 175.00 [lb_av] MED T ([facility]) Body mass index (BMI) [Ratio] 24.4 kg/m2 24.4 k g/m2 [facility] ([facility]) Heart rate 61 /min 61 /min [facility] ([facility]) Body temperature 97.2 [degF] 97.2 [degF] [facility] ([facility]) Oxygen saturation in Arterial blood by Pulse oximetry 98 % 98 % [facility] ([facility])
--- OUTSIDE RECORDS SUMMARY | 2021-07-31 13:32 | CCD ---
Author Author [facility] Organization [facility] Address Unknown Phone Unavailable Care Team Providers Care Treasurer Name Role Phone Herman Ruiz MD Unavailable [...] Unavailable Unavailable JosephHerman douglas MD Unavailable Unavailable Joseph, Herman Small MD [...] Unavailable Joseph, Herman Small MD Unavailable Unavailable Jsoeph, Herman Small MD Unavailable Unavailable Joseph, Herman [...] Unavailable Gina, Sonal Yordan MD Unavailable Unavailable Igna, Sonal Yordan MD Unavailable Unavailable Gina, Sonal Yordan MD Unavailable Unavailable Gina, Sonal Farr MD Unavailable Unavailable Gina, Sonal Yordan MD Unavailable Unavailable Gina, A Yodran MD Unavailable Unavailable Gina, A Yordan MD [...] A Yordan MD Unavailable Unavailable Gina, A Yoradn MD Unavailable Unavailable Gina, A Yordan MD [...] Unavailable Gina, A Yordan MD Unavailable Unavailable Gian, A Yordan MD Unavailable Unavailable Gina, A [...] Unavailable Gina, A Yordan MD Unavailable Unavailable Gnia, A Yordan MD Unavailable Unavailable Gina, A Yordan MD Unavailable Unavailable Gina, A Yordan MD Unavailable Unavailable Joseph, Herman Small MD [...] Herman Small MD Unavailable Unavailable Joseph, Herman Samll MD Unavailable Unavailable Joseph, Herman Small MD Unavailable Unavailable Joseph, Herman Small MD Unavailable Unavailable Joseph, Herman Small MD Unavailable Unavailable Joseph, Herman Small MD Unavailable Unavailable Joseph, Herman Small MD Unavailable Unavailable Joseph, Herman Small MD Unavailable Unavailable Joseph, Herman Small MD Unavailable Unavailable Joseph, Herman mSall MD Unavailable Unavailable Joseph, Herman Small MD [...] Unavailable Joseph, Herman Small MD Unavailable Unavailable Re-disclosure Warning The records [...] is protected by Article 27-F of the [facility] Public Health law. If you continue you may have access to information: Regarding HIV / AIDS; Provided by facilities licensed or operated by the [facility] Office of Mental Health; or Provided by the [facility] Office for People With Developmental Disabilities. If such information is present, then the following [facility] mandated warning applies: This information has [...] law may result in a fine or long-term sentence or both. A general authorization for the release of medical or other information is NOT sufficient authorization for further disc losure. Allergies and Adverse Reactions Type Description Substance Reaction Status Data Source(s ) Propensity to adverse reactions NO KNOWN ALLERGIES NO KNOWN ALLERGIES [facility] Encounters Encounter Providers Location Date Indications Data Source(s ) Outpatient Attender: Yordan Fuentes MD [id number] 07/16/2021 12:00:0 0 AM EDT [facility] Outpatient Referrer: Yordan Fuentes MD 07/16/2021 12 :00:00 AM EDT Other specified soft tissue disorders [facility] Other specified soft tissue disorders Outpatient Attender: Yordan Fuentes MDReferrer: Geovanny douglas MD [id number] 06/21/2021 12:00:00 AM EDT [facility] Outpatient Attender: Geovanny Ruiz MD [place] [facility] 10:50:00 AM EDT [facility] ([facility] ) Immunizations Vaccine Date Status Description Data Source(s) COVID-19 VACCINE Janet 02/16/2021 12:00:00 AM EDT completed [facility] Vaccine Series Complete: YESThis Data wa s Submitted to [facility] [employer]. Medications No Information Insurance Providers Payer name Policy type / Coverage type Policy ID Covered republican ID Covered republican's relationship to mckeon Policy Mc[employer] Plan Information U [id number] Self [id number] [employer]Y [id number] SP [id number] [employer] [id number] SP [id number] [employer] O [id number] S [id number] ACTIVE DUTY [id number] SP [id number] Problems, Conditions, and Diagnoses Code Display Name Description Problem Type Effective Dates Data Source(s) M79.89 Other specified soft tissue disorders Ot her specified soft tissue disorders Diagnosis 07/16/2021 10:42:[address] 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 Name Value Range Interpretation Code Description Data Gracy rce(s) Supporting Document(s) Progress Note [facility] YHABOc7yAnAHOaTd33/SSWezGSImj0JyVQbmFAr0VLboPLJrT8XzIAW2rN5zXKJ4GBaSJgReQePiKXXu lbm [file] YdR3LDg4POkzMSHOYq0O ID Date Data Source [id number] 07/16/2021 02:30:[address] [facility] MR EXTREMITY LOWER JOINT WITH AND WITHOU T CONTRAST [id number] RESULTInterpreted by:XI DominguezAM: MRI Pelvis without and with ContrastHISTORY: Soft [...] rce(s) Supporting Document(s) ID Date Data Source [id number] 06/21/2021 09:16:[address] [facility] Name Value Range Interpretation Code Description Data Gracy rce(s) Supporting Document(s) Progress Note [facility] OFJTGi3jVmPFPcHf99/YTWqgKRGgm5QkQKptJGh6FCitNXGcL7KlCJM4jA3yVHZ2KEwGUzLaYkEdWCE6 lbm [file] pAOhd+Mary Carmen/o9eBCDIR+UVV5U/6E/37z+7TsqhWHx4/j/LzSro5sR/7+KIyotQathkE042669pQsf/bzo [file] ICAgICAgICAgICAgICAgICAgICAgICAgICAgICAgIC AgICAgICAgICAgICAgICAgICAgICAgICAgICANCiAgICAgICAgICAgICAgICAgICAgICAgICAgICAgIC AgICAgICAgICAgICAgICAgICAgICAgICAgICAgICAgICAgICAgICAgICAgICAgICAgICAgICAgICAgIC AgICAgICAgICANCiAgICAgICAgICAgICAgICAgICAg ICAgICAgICAgICAgICAgICAgICAgICAgICAgICAgICAgICAgICAgICAgICAgICAgICAgICAgICAgICAg ICAgICAgICAgICAgICAgICAgICANCiAgICAgICAgICAgICAgICAgICAgICAgICAgICAgICAgICAgICAg ICAgICAgICAgICAgICAgICAgICAgICAgICAgICAgIC AgICAgICAgICAgICAgICAgICAgICAgICAgICAgICANCiAgICAgICAgICAgICAgICAgICAgICAgICAgIC AgICAgICAgICAgICAgICAgICAgICAgICAgICAgICAgICAgICAgICAgICAgICAgICAgICAgICAgICAgIC AgICAgICAgICAgICANCiAgICAgICAgICAgICAgICAg ICAgICAgICAgICAgICAgICAgICAgICAgICAgICAgICAgICAgICAgICAgICAgICAgICAgICAgICAgICAg ICAgICAgICAgICAgICAgICAgICAgICANCiAgICAgICAgICAgICAgICAgICAgICAgICAgICAgICAgICAg ICAgICAgICAgICAgICAgICAgICAgICAgICAgICAgIC AgICAgICAgICAgICAgICAgICAgICAgICAgICAgICAgICANCiAgICAgICAgICAgICAgICAgICAgICAgIC AgICAgICAgICAgICAgICAgICAgICAgICAgICAgICAgICAgICAgICAgICAgICAgICAgICAgICAgICAgIC AgICAgICAgICAgICAgICANCiAgICAgICAgICAgICAg ICAgICAgICAgICAgICAgICAgICAgICAgICAgICAgICAgICAgICAgICAgICAgICAgICAgICAgICAgICAg ICAgICAgICAgICAgICAgICAgICAgICAgICANCiAgICAgICAgICAgICAgICAgICAgICAgICAgICAgICAg ICAgICAgICAgICAgICAgICAgICAgICAgICAgICAgIC AgICAgICAgICAgICAgICAgICAgICAgICAgICAgICAgICAgICANCjw/mKUeZ2gtvMQqfsC2Q9daQk4IIz 7JTR7nm1CtLJWkHZjkgvMlSqpAHdXpZZBdWcqFGtn6WFasJK9NmZGkH7AmG3PaILtmXD9OYNMsOIZttD TaARRiZAVgIqL5USCrHVspMA9HnEOpBNmqKSCgZPQt LuXzSHZyMHUrUBIcUL7SSTVfC119awQmUh2UGa1FCvOwZL1cdk1MJbDuCITgFbqNRom2NPjtTT4ShPSa uUHmKWQhHTMDOcEnG2byn4ErPjQjDASKSPetWC9No9SzqNQwDGq+Xy9XSQ9ww4AaGEulFWNlGU9vbo6R PZtKHnIoS9EcsOffATQlw8ywXJGhUA4nyIVeYLF5VD OnxifhlZ2udGGwWTovRz3tkoTyuuafGLHuOZYxTY0mIr4jZGOoBFC5BhS0HZDECU1JFNGmVEBadCKfVE IfOJOKZJ3AOPbdAQF4SYDclxZhhKTcGAxpOO8YLDUpxePtOsGfSRPRXQs+Uf5THY2sh0QaWVipDIMbFJ 7eby4CTPnJLhDuE4K9kJEzT7Y9YHppUr3UYUGbWWIs OkLtNVHJKUxnOQ4RZR6ugxE2VF9TyXPaDOUcGYKlsRVnTHh4P95eyYNqJFchRV5RNBP+Eduardo+Ng0KQYOp VOJgRMJmIiVpYADIIuQoM9IjM8OBb0MmM6DtDU20gEvydcYiFJqgVR5LGN6iDSLuHKMSCP1LcOHkpQ3q qsIwFdHyBMODIlTqB11nrUBoNSRwGLYsUHDmHy9KZY OqP7AwvcZftVgbxsSkVIRwHGPSSS6XBHbpidPttRVwtZkmUH29eXwdPJ9KVq0SRpGdMB9sqy6EuIPpVc 0EIOZqQg9IEEBmMDBfWPYmNCC2QGQjDcKdCIzwRNPoJEBwNZZ3XPZjXUSvWF7GVjCyKAQzJoV3VuQbLD GiQEYilh0EPHZgEFYlMeX8IWMoLNGoVKYjOSujYZKf OCWbYUB9YNUtYJDwJF3QKyNuILHgYYK5CRZjRHAeZIQzom7LFUKkLEYzXjFcItEtVJCeTWGoBRjtFJPi EZQ6ZGP0ZCTyFMEjYY8VIrPyFRUeGJb2UzBkBYShGWRxdu4YSJLiUYOcHES3WlRxASCwUWAfXCleBLMr FPI7LECmMXEyQDQzDG1YXkXrSNObJKP5YrBfEWLlMG Usih5DPYHfKEOgSJY8PhMqCFAoHJUbUFozAMDoCJGaRZMqMBFzXYUsDO3CDoGaDGBmJJT3ILknGOFoWT Ybde0DQBFfPTKpMoBbKFGqSMYpEWGcQJxbMMRzHCOpWCg7NNOePPNiWL0ICtIoCTQyBjE6UPbzDTPiZX Szxm7UGLDyISVjFgo2AUFpKSLiSRKdMXsmEYUnGRB0 KEZiKQTsDEWqOC0TYaZvUDDkLlC6WVGuRLCtRUZtuc5HLDYwTHAnPSG4MHLfFYExOMUaCYizCAExDZQ5 ALDnZAInAFPgMM6CFxBiDXDrFfF8ZXFqLEFcEGYnes2GJFFpVPPhVmM1EUQtFSXaXDDdFNztWGQlXDD5 VhR6EBMwRCJrMZ6XUlWnSGwoGBEPHpj6THxsD7g1HA QfBu2OZ1Psm5MjNqHsBYWDVYzgIK1cmtBoJHZsMk3ET1pQQsbiVCO9SKOmNHJoO0YzLOEwQlI6FBPwVk OiYws2FGK8ZL3dTMGcWKwuMdSyCII2R6XtYeKcPBJ3QpYvJtQaAGY5GhZ2McDjQW6HXj0LFbG4UFQ9gY KzPf8TKnZ1EqDXRgZwPM2NCMl= ID Date Data Source [id number] 12/19/2020 10:00:00 AM EDT [facility] Name Value Range Interpretation Code Description Data Gracy rce(s) Supporting Document(s) SARS-CoV-2 POSITIVE [facility] This lab was ordered by [facility] and reported by [employer]. ID Date Data Source [id number] 12/19/2020 12:00:00 AM EDT [facility] Name Value Range Interpretation Code Description Data Gracy rce(s) Supporting Document(s) SARS-CoV-2 RT-PCR positive [facility] lab [facility] and re ported by [employer]. ID Date Data Source [id number] 12/14/2020 09:06:00 AM EDT [facility] Name Value Range Interpretation Code Description Data Gracy rce(s) Supporting Document(s) SARS coronavirus 2 RNA Not Detected [facility] This lab was ordered by [facility] and reported by [facility]. ID Date Data Source [id number] 10/15/2020 09:17:00 AM EST [facility] Name Value Range Interpretation Code Description Data Gracy rce(s) Supporting Document(s) SARS coronavirus 2 RNA Not Detected [facility] [place] [facility] and reported by [facility]. Procedure Social History Code Duration Value Status Description Data Source(s ) Smoking 07/23/2021 12:00:00 AM EDT Patient is a former smoker completed Patient is a former smoker [facility] ([facility]) Alcohol intake 06/21/2021 12:00:00 AM EDT Ex-drinker (finding) comp leted Ex- drinker (finding) [facility] Tobacco use and exposure 06/21/2021 12:00:00 AM EDT Never used co mpleted Never used [facility] Smoking 06/21/2021 12:00:00 AM EDT Never smoker completed Never s [facility] Vital Signs ID Date Data Source UNK Name Value Range Interpretation Code Description Data Source(s) Body height 71 [in_i] 71 [in_i] [facility] ([facility]) 5'11" Body weight 175.00 [lb_av] 175.00 [lb_av] [facility] T ([facility]) Body mass index (BMI) [Ratio] 24.4 kg/m2 24.4 k g/m2 [facility] ([facility]) Heart rate 66 /min 66 /min [facility] Body temperature 98.0 [degF] 98.0 [degF] [facility] Oxygen saturation in Arterial blood by Pulse oximetry 94 % 94 % [facility] Body height 71 [in_i] 71 [in_i] [facility] 5'11" Body weight 175.00 [lb_av] 175.00 [lb_av] [facility] T ([facility]) Body mass index (BMI) [Ratio] 24.4 kg/m2 24.4 k g/m2 [facility] ([facility]) Heart rate 61 /min 61 /min [facility] Body temperature 97.2 [degF] 97.2 [degF] [facility] ([facility]) Oxygen saturation in Arterial blood by Pulse oximetry 98 % 98 % [facility] ([facility])
[2021-07-31] MEDS ORDERED: NS 1,000 ML IV ONE ×2 (13:45)
[2021-07-31 13:46] LABS: HEMATOCRIT 44.2 % (42.0-52.0); HEMOGLOBIN 15.3 g/dl (13.5-17.5); MEAN CORPUSCULAR HEMOGLOBIN 30.5 pg (27.0-33.0); MEAN CORPUSCULAR HGB CONC 34.6 g/dl (32.0-36.5); MEAN CORPUSCULAR VOLUME 88.2 fl (80.0-96.0); PLATELET COUNT, AUTOMATED 191 10^3/uL (150-450); RED BLOOD COUNT 5.01 10^6/uL (4.30-6.10)
[2021-07-31 14:05] LABS: BLOOD UREA NITROGEN 18 MG/DL (7-18); CALCIUM LEVEL 9.2 MG/DL (8.5-10.1); CARBON DIOXIDE LEVEL 30 MEQ/L (21-32); CHLORIDE LEVEL 101 MEQ/L (98-107); CREATININE FOR GFR 1.06 MG/DL (0.70-1.30); GLOMERULAR FILTRATION RATE > 60.0 (>60); GLUCOSE, FASTING 89 MG/DL (70-100); POTASSIUM SERUM 4.1 MEQ/L (3.5-5.1); SODIUM LEVEL 136 MEQ/L (136-145)
--- NOTE | 2021-07-31 15:10 | REP ---
INDICATION: dysuria, low back pain. COMPARISON: None. TECHNIQUE: Noncontrast images through the abdomen and pelvis with coronal and sagittal reconstructions. FINDINGS: CT abdomen: Lung bases are clear. Heart is not enlarged. There is no pericardial thickening or effusion. See no hiatal hernia. The liver, spleen, gallbladder, pancreas and adrenal glands are normal. Stomach unremarkable. Colon shows scattered stool and gas in the abdomen proper. Small bowel loops fluid-filled but not abnormally dilated. Some loops shows slight wall thickening proximally which is a nonspecific finding. Gastroenteritis is not excluded. The aorta is without aneurysm. There is no periaortic, other retroperitoneal or mesenteric pathologic sized lymphadenopathy. Lung window review of all CT slices in the abdomen and pelvis shows no perforation or free air. The kidneys are symmetric in size and show no mass, cyst, stone or hydronephrosis. No hydroureter or ureteral stone identified. Bone windows show spine slightly reduced lordosis but no compression deformity or destructive lesion. No spondylolysis. Visualized ribs intact. CT pelvis: Sacrum, SI joints, pelvis and hips are normal on bone window settings. Distal left colon, sigmoid and rectum unremarkable small bowel loops unremarkable. No edema or inflammatory changes about the cecum to suggest appendicitis. Appendix not definitely visible in this patient with low body fat percentage. Bladder is only minimally filled therefore its wall thickness cannot be evaluated. No visible stone, mass, dilated ureter or ureteral stone. No pelvic free fluid or adenopathy. No ventral or inguinal hernia nor pathologic sized inguinal adenopathy. IMPRESSION: 1. Negative CT abdomen pelvis February. There is no renal, ureteral or bladder stone. No hydronephrosis or hydroureter. 2. Colon, small bowel loops, stomach and appendix region without acute finding. No colitis, diverticulitis or inflammatory changes at about the cecum to suggest appendicitis. 3. Solid organs upper abdomen unremarkable. Gallbladder without calcified stone. 4. No abdominal or pelvic adenopathy of pathologic size. No abscess perforation or free air. <Electronically signed by Saurav Madera > 07/31/21 [id number]
[2021-07-31 16:13] LABS: GC DNA AMPLIFICATION NEGATIVE (NEGATIVE)
[2021-07-31 16:43] VITALS: BP 122/58
[2021-07-31 17:53] LABS: BASO % 0.3 % (0.0-1.0); EOS # 0.1 10^3/uL (0.0-0.5); EOS % 1.2 % (0.0-3.0); LYMPH # 0.8 10^3/uL (1.5-5.0); LYMPH % 13.5 % (24.0-44.0); MONO # 0.6 10^3/uL (0.0-0.8); MONO % 10.3 % (2.0-8.0); NEUTROPHILS # 4.5 10^3/uL (1.5-8.5); NEUTROPHILS % 74.4 % (36.0-66.0)
[2021-07-31 18:02] LABS: ALBUMIN 4.3 GM/DL (3.2-5.2); ALT/SGPT 20 U/L (12-78); BILIRUBIN,DIRECT 0.2 MG/DL (0.0-0.2); BILIRUBIN,TOTAL 0.8 MG/DL (0.2-1.0); LIPASE 60 U/L (73-393); TOTAL PROTEIN 7.1 GM/DL (6.4-8.2)
== END 2021-07-31 16:47 | disposition home or self-care (01) ==
LOC: M ED 12:03
DX: K52.9 Noninfective gastroenteritis and colitis, unspecified (principal); F10.11 Alcohol abuse, in remission; Z87.891 Personal history of nicotine dependence

== ENCOUNTER 2022-09-01 11:58 | Day surgery (SDC) | payer OTHER ==
[~2022-09-01] VITALS: Ht 180.3 cm; Wt 78.1 kg
[~2022-09-01 11:58] MED LIST changes: +CETI-24 PO; +FLUTISP NARES; +VITA100093 PO
[2022-09-01] MEDS ORDERED: LR 1,000 ML IV SCH ×2 (12:30→15:05)
[2022-09-01] MEDS ORDERED: LIDOCAINE W/EPINEPHRINE 1% 20ML VIAL As Ordered ONE (13:15)
[2022-09-01] MEDS ORDERED: OXYMETAZOLINE 0.05% NASAL SPRAY (AFRIN) As Ordered ONE (13:15)
[2022-09-01] MEDS ORDERED: COCAINE 4% 4ML NASAL SOLUTION BTL As Ordered ONE (13:15)
[2022-09-01] MEDS ORDERED: SUGAMMADEX SODIUM 500 MG/5 ML VIAL (BRIDION) As Ordered ONE (13:37)
[2022-09-01] MEDS ORDERED: propofoL 200 MG/20 ML VIAL As Ordered ONE (13:37)
[2022-09-01] MEDS ORDERED: MIDAZOLAM INJ 2MG/2ML VIAL (J2250 PER 1MG) As Ordered ONE (13:37)
[2022-09-01] MEDS ORDERED: fentaNYL 100 MCG/2 ML INJECTION As Ordered ONE ×2 (13:37→14:18)
[2022-09-01] MEDS ORDERED: LIDOCAINE 2% 100MG/5ML SDV (FOR ANES.) As Ordered ONE (13:37)
[2022-09-01] MEDS ORDERED: ROCURONIUM BROMIDE 50 MG/5 ML VIAL As Ordered ONE (13:37)
[2022-09-01] MEDS ORDERED: ONDANSETRON 4MG 2ML VIAL As Ordered ONE (13:37)
[2022-09-01] MEDS ORDERED: oxyCODONE 5MG TAB PO PRN (14:50)
[2022-09-01] MEDS ORDERED: ONDANSETRON 4MG 2ML VIAL IV PRN ×2 (14:50→15:05)
[2022-09-01] MEDS ORDERED: MORPHINE 10 MG/ML 1ML VIAL IV PRN (15:05)
[2022-09-01] MEDS ORDERED: ANEXSIA, NORCO 7.5MG/325MG TABLET(HYDROCODONE/APAP) PO PRN (15:05)
[2022-09-01] MEDS: fentaNYL 100 MCG/2 ML INJECTION IV PRN ×4 (15:23→15:41)
[2022-09-01 16:25] VITALS: BP 128/75
== END 2022-09-01 16:46 | disposition home or self-care (01) ==
LOC: M SDC 11:58
PROVIDERS: ATTEND Otolaryngology
DX: J34.2 Deviated nasal septum (principal); J34.3 Hypertrophy of nasal turbinates; R51.9 Headache, unspecified; Z79.899 Other long term (current) drug therapy; Z87.891 Personal history of nicotine dependence
CPT/HCPCS: 30140; 30520; C9046; J1100; J2250; J2405; J3010

== ENCOUNTER → 2022-09-28 | Outpatient (CLI) | payer OTHER | LOC: M PLAIMG 06:36 | PROVIDERS: ATTEND Pain Medicine Interventional Pain Medicine | DX: M47.817 Spondylosis without myelopathy or radiculopathy, lumbosacral region (principal); M51.26 Other intervertebral disc displacement, lumbar region; M51.27 Other intervertebral disc displacement, lumbosacral region ==

== ENCOUNTER 2023-01-02 09:08 | Day surgery (SDC) | payer OTHER ==
[~2023-01-02] VITALS: Ht 180.3 cm; Wt 79.3 kg
[~2023-01-02 09:08] MED LIST changes: +FLUT50SP17 NARES; -FLUTISP NARES; +NS 1,000 ML IV ONE
[2023-01-02] MEDS ORDERED: LIDOCAINE 2% 100MG/5ML SDV (FOR ANES.) As Ordered ONE (09:35)
[2023-01-02] MEDS ORDERED: propofoL 200 MG/20 ML VIAL As Ordered ONE (09:41)
[2023-01-02] MEDS ORDERED: fentaNYL 100 MCG/2 ML INJECTION As Ordered ONE (10:06)
[2023-01-02 11:17] VITALS: BP 120/58
== END 2023-01-02 11:19 | disposition home or self-care (01) ==
LOC: M OPP 09:08
PROVIDERS: ATTEND Internal Medicine Gastroenterology
DX: K64.0 First degree hemorrhoids (principal); R19.4 Change in bowel habit; Z79.52 Long term (current) use of systemic steroids; Z80.3 Family history of malignant neoplasm of breast; Z80.41 Family history of malignant neoplasm of ovary; Z80.42 Family history of malignant neoplasm of prostate